=== PATIENT | male | born 1990 | race Caucasian/White ===

== ENCOUNTER 2017-08-04 10:52 | Emergency (ER) | payer BC ==
--- NOTE | 2017-08-04 11:34 | ER Document Report ---
ED Medical Screen (RME) - General Chief Complaint: Head Injury Stated Complaint: HEADACHE, SPEECH PROBLEMS, BLURRED VISION Time Seen by Provider: 08/04/17 11:27 Notes: Patient fell and hit his head on Friday on a 4 x 4 fence post. There is no loss of consciousness. 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 Mom states that patient now is having trouble finding words and is confused. Patient states that he has had some headaches and feels dizzy. They both state the symptoms of been progressing since Friday. TRAVEL OUTSIDE OF THE [place] IN LAST 30 DAYS: No - Related Data Allergies/Adverse Reactions: cefixime [From Suprax] Allergy (Verified 08/04/17 11:03) sumatriptan [From Imitrex] Adverse Reaction (Verified 08/04/17 11:03) sumatriptan succinate [From Imitrex] Adverse Reaction (Verified 08/04/17 11:03) Past Medical History Renal/ Medical History: Denies: Hx Peritoneal Dialysis Past Surgical History: Reports: Hx Tonsillectomy - adnoids - Immunizations Hx Diphtheria, Pertussis, Tetanus Vaccination: No Physical Exam - Vital signs Vitals: Temp Pulse Resp BP Pulse Ox 98.0 F 55 L 16 138/86 H 100 08/04/17 11:04 08/04/17 11:04 08/04/17 11:04 08/04/17 11:04 08/04/17 11:04 Course - Vital Signs Vital signs: Temp Pulse Resp BP Pulse Ox 98.0 F 55 L 16 138/86 H 100 08/04/17 11:04 08/04/17 11:04 08/04/17 11:04 08/04/17 11:04 08/04/17 11:04
--- NOTE | 2017-08-04 12:19 | RADIOLOGY REPORT (SQ) ---
EXAM DESCRIPTION: CT HEAD WITHOUT COMPLETED DATE/TIME: 08/04/2017 12:06 pm REASON FOR STUDY: trauma/gardner/confusion COMPARISON: None. TECHNIQUE: Axial images acquired through the brain without intravenous contrast. Images reviewed wi th bone, brain and subdural windows. Images stored on PACS. All CT scanners at this facility use dose modulation, iterative reconstruction, and/or weight based d osing when appropriate to reduce radiation dose to as low as reasonably achievable (ALARA). [facility]: Dose Right [facility]: CareDose [facility]: Dose Right [facility]: Teradose 4D [facility]: [employer] RADIATION DOSE: Up-to-date CT equipment and radiation dose reduction techniques were employed. CTDIv ol: 64.6 mGy. DLP: 1163 mGy-cm. mGy. LIMITATIONS: None. FINDINGS: VENTRICLES: Normal size and contour. CEREBRUM: No masses. No hemorrhage. No midline shift. No evidence for acute infarction. Normal gra y/white matter differentiation. No areas of low density in the white matter. CEREBELLUM: No masses. No hemorrhage. No alteration of density. No evidence for acute infarction. EXTRAAXIAL SPACES: No fluid collections. No masses. ORBITS AND GLOBE: No intra- or extraconal masses. Normal contour of globe without masses. CALVARIUM: No fracture. PARANASAL SINUSES: No fluid or mucosal thickening. SOFT TISSUES: No mass or hematoma. OTHER: No other significant finding. IMPRESSION: NORMAL BRAIN CT WITHOUT CONTRAST. EVIDENCE OF ACUTE STROKE: NO. COMMENT: Quality ID # [id number]: Final reports with documentation of one or more dose reduction techniques (e.g., Automated exposure control, adjustment of the mA and/or kV according to patient size, use of iterative reconstruction technique) TECHNICAL DOCUMENTATION: JOB ID: [id number] [employer]- All Rights Reserved
--- NOTE | 2017-08-04 13:49 | ER Document Report ---
ED Head/Face/Scalp Injury - General Chief Complaint: Head Injury Stated Complaint: HEADACHE, SPEECH PROBLEMS, BLURRED VISION Time Seen by Provider: 08/04/17 11:27 Mode of Arrival: Ambulatory Information source: Patient Notes: 27 yo male hit back of head on fence post when falling backwards out of chair, night. Friday slight headache.. Symptoms of concussion friday, included lost where he was in the grocery sotre, vertigo while watching TV or blurring words when reads, increased slurring speech. Headache pain is 5/5 frontal headache. 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 Concussion in past 2014, sx lasted 2 months. TRAVEL OUTSIDE OF THE [place] IN LAST 30 DAYS: No - Related Data Allergies/Adverse Reactions: cefixime [From Suprax] Allergy (Verified 08/04/17 12:23) sumatriptan [From Imitrex] Adverse Reaction (Verified 08/04/17 12:23) sumatriptan succinate [From Imitrex] Adverse Reaction (Verified 08/04/17 12:23) Past Medical History - General Information source: Patient, Parent - mom - Social History Smoking Status: Never Smoker Frequency of alcohol use: None Drug Abuse: None Family History: Reviewed & Not Pertinent Patient has suicidal ideation: No Patient has homicidal ideation: No Renal/ Medical History: Denies: Hx Peritoneal Dialysis Past Surgical History: Reports: Hx Tonsillectomy - adnoids - Immunizations Hx Diphtheria, Pertussis, Tetanus Vaccination: No Review of Systems - Review of Systems Constitutional: No symptoms reported EENT: No symptoms reported Cardiovascular: No symptoms reported Respiratory: No symptoms reported Gastrointestinal: No symptoms reported Genitourinary: No symptoms reported Male Genitourinary: No symptoms reported Musculoskeletal: No symptoms reported Skin: No symptoms reported Hematologic/Lymphatic: No symptoms reported Neurological/Psychological: See HPI, Confusion Physical Exam - Vital signs Vitals: Temp Pulse Resp BP Pulse Ox 98.0 F 55 L 16 138/86 H 100 08/04/17 11:04 08/04/17 11:04 08/04/17 11:04 08/04/17 11:04 08/04/17 11:04 Interpretation: Normal - General General appearance: Appears well, Alert - HEENT Head: Normocephalic, Atraumatic Eyes: Normal Pupils: PERRL - Respiratory Respiratory status: No respiratory distress Chest status: Nontender Breath sounds: Normal Chest palpation: Normal - Cardiovascular Rhythm: Regular Heart sounds: Normal auscultation Murmur: No - Abdominal Inspection: Normal Distension: No distension Bowel sounds: Normal Tenderness: Nontender Organomegaly: No organomegaly - Back Back: Normal, Nontender - Extremities General upper extremity: Normal inspection, Nontender, Normal color, Normal ROM , Normal temperature General lower extremity: Normal inspection, Nontender, Normal color, Normal ROM , Normal temperature, Normal weight bearing. No: Jamie's sign - Neurological Neuro grossly intact: Yes Cognition: Normal Orientation: AAOx4 [place] Coma Scale Eye Opening: Spontaneous [place] Coma Scale Verbal: Oriented [place] Coma Scale Motor: Obeys Commands [place] Coma Scale Total: 15 Speech: Normal Motor strength normal: LUE, RUE, LLE, RLE Sensory: Normal - Psychological Associated symptoms: Normal affect, Normal mood - Skin Skin Temperature: Warm Skin Moisture: Dry Skin Color: Normal Course - Re-evaluation Re-evalutation: 08/04/17 14:[address] negative, headache 0/5. Ready to go home with mom. 08/05/17 21:10 - Vital Signs Vital signs: Temp Pulse Resp BP Pulse Ox 97.6 F 54 L 15 122/84 100 08/04/17 14:04 08/04/17 14:04 08/04/17 14:04 08/04/17 14:04 08/04/17 14:04 Discharge - Discharge Clinical Impression: Post concussion syndrome Headache Qualifiers: Headache type: unspecified Headache chronicity pattern: acute headache Intractability: not intractable Qualified Code(s): R51 - Headache Condition: Good Disposition: HOME, SELF-CARE Instructions: Concussion ([facility]), Headache ([facility]), Neurologist, Post-Concussion Syndrome ([facility]) Additional Instructions: to er if worse rest see dr. torres on friday as planned. see neurologist for headache follow up Forms: Parent Work Note, Return to Work Referrals: NAA CASSIDY MD [ACTIVE STAFF] - Follow up as needed JOHN TORRES MD [Primary Care Provider] - 08/11/17
[2017-08-04] MEDS ORDERED: KETOROLAC TROMETHAMINE INJ/PF 30 MG/1 ML SDV IV ONE (13:51)
[2017-08-04] MEDS ORDERED: DIPHENHYDRAMINE HCL 50 MG/ML VIAL IV ONE (13:51)
[2017-08-04] MEDS ORDERED: PROCHLORPERAZINE EDISYLATE INJ 10 MG/2 ML VIAL IV ONE (13:51)
[2017-08-04 14:25] VITALS: BP 122/84
== END 2017-08-04 14:51 | disposition home or self-care (01) ==
LOC: ER 10:52
DX: F07.81 Postconcussional syndrome (principal); G44.309 Post-traumatic headache, unspecified, not intractable; H53.8 Other visual disturbances; Z88.3 Allergy status to other anti-infective agents
CPT/HCPCS: 99284; 96374; 96375; 70450; J1200; J1885; J0780

== ENCOUNTER 2018-07-27 14:54 | Emergency (ER) | payer BC ==
--- NOTE | 2018-07-27 15:17 | ER Document Report ---
ED Medical Screen (RME) - General Chief Complaint: Head Injury Stated Complaint: HEAD INJURY Time Seen by Provider: 07/27/18 15:10 Mode of Arrival: Ambulatory Information source: Patient, Parent Notes: 28-year-old male presents emergency department with complaints of headache, slurred speech, difficulty concentrating. Patient states that he hit his head on a loft ceiling yesterday. No LOC. Began feeling nauseated afterwards. Denies vomiting. 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 I have greeted and performed a rapid initial assessment of this patient. A comprehensive ED assessment and evaluation of the patient, analysis of test results and completion of the medical decision making process will be conducted by additional ED providers. PHYSICAL EXAMINATION: GENERAL: Well-appearing, well-nourished and in no acute distress. HEAD: Atraumatic, normocephalic. EYES: Pupils equal round extraocular movements intact, conjunctiva are normal. ENT: Nares patent NECK: Normal range of motion LUNGS: No respiratory distress Musculoskeletal: Normal range of motion NEUROLOGICAL: Normal speech, normal gait. PSYCH: Normal mood, normal affect. SKIN: Warm, Dry, normal turgor, no rashes or lesions noted. TRAVEL OUTSIDE OF THE [place] IN LAST 30 DAYS: No - Related Data Allergies/Adverse Reactions: cefixime [From Suprax] Allergy (Verified 07/27/18 14:55) sumatriptan [From Imitrex] Adverse Reaction (Verified 07/27/18 14:55) sumatriptan succinate [From Imitrex] Adverse Reaction (Verified 07/27/18 14:55) Past Medical History - Social History Frequency of alcohol use: Rare Drug Abuse: None Renal/ Medical History: Denies: Hx Peritoneal Dialysis Past Surgical History: Reports: Hx Tonsillectomy - adnoids - Immunizations Hx Diphtheria, Pertussis, Tetanus Vaccination: No History of Influenza Vaccine for 06/2017 - 11/2017 Season: Unknown Physical Exam - Vital signs Vitals: Temp Pulse Resp BP Pulse Ox 97.9 F 65 15 118/70 100 07/27/18 14:59 07/27/18 14:59 07/27/18 14:59 07/27/18 14:59 07/27/18 14:59 Course - Vital Signs Vital signs: Temp Pulse Resp BP Pulse Ox 97.9 F 65 15 118/70 100 07/27/18 14:59 07/27/18 14:59 07/27/18 14:59 07/27/18 14:59 07/27/18 14:59 Doctor's Discharge - Discharge Referrals: JOHN TORRES MD [Primary Care Provider] - Follow up as needed
--- NOTE | 2018-07-27 15:56 | RADIOLOGY REPORT (SQ) ---
EXAM DESCRIPTION: CT HEAD WITHOUT COMPLETED DATE/TIME: 07/27/2018 3:42 pm REASON FOR STUDY: trauma, slurred speech, memory loss COMPARISON: 08/04/2017 TECHNIQUE: Axial images acquired through the brain without intravenous contrast. Images reviewed wi th bone, brain and subdural windows. Additional sagittal and coronal reconstructions were generated. Images stored on PACS. All CT scanners at this facility use dose modulation, iterative reconstruction, and/or weight based d osing when appropriate to reduce radiation dose to as low as reasonably achievable (ALARA). [facility]: Dose Right [facility]: CareDose [facility]: Dose Right [facility]: Teradose 4D [facility]: [employer] RADIATION DOSE: CT Rad equipment meets quality standard of care and radiation dose reduction techniq ues were employed. CTDIvol: 53.2 mGy. DLP: 1097 mGy-cm. mGy. LIMITATIONS: None. FINDINGS: VENTRICLES: Normal size and contour. CEREBRUM: No masses. No hemorrhage. No midline shift. No evidence for acute infarction. Normal gra y/white matter differentiation. No areas of low density in the white matter. CEREBELLUM: No masses. No hemorrhage. No alteration of density. No evidence for acute infarction. EXTRAAXIAL SPACES: No fluid collections. No masses. ORBITS AND GLOBE: No intra- or extraconal masses. Normal contour of globe without masses. CALVARIUM: No fracture. PARANASAL SINUSES: No fluid or mucosal thickening. SOFT TISSUES: No mass or hematoma. OTHER: No other significant finding. IMPRESSION: NORMAL BRAIN CT WITHOUT CONTRAST. EVIDENCE OF ACUTE STROKE: NO. COMMENT: Quality ID # [id number]: Final reports with documentation of one or more dose reduction techniques (e.g., Automated exposure control, adjustment of the mA and/or kV according to patient size, use of iterative reconstruction technique) TECHNICAL DOCUMENTATION: JOB ID: [id number] [employer]- All Rights Reserved Reading location - IP/workstation name: [email or web address]
[2018-07-27] MEDS ORDERED: ONDANSETRON 4 MG TAB.RAPDIS PO ONE (17:18)
[2018-07-27] MEDS ORDERED: PROCHLORPERAZINE MALEATE 5 MG TABLET PO ONE (17:18)
--- NOTE | 2018-07-27 18:59 | ER Document Report ---
ED General - General Chief Complaint: Head Injury Stated Complaint: HEAD INJURY Time Seen by Provider: 07/27/18 15:10 Mode of Arrival: Ambulatory TRAVEL OUTSIDE OF THE [place] IN LAST 30 DAYS: No - HPI Patient complains to provider of: Head injury nausea vomiting feeling unwell Notes: Patient coming in today for the above-stated symptoms. Patient was seen by her triage provider notes provided below 28-year-old male presents emergency department with complaints of headache, slurred speech, difficulty concentrating. Patient states that he hit his head on a loft ceiling yesterday. No LOC. Began feeling nauseated afterwards. Denies vomiting. 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 Patient does agree with the above statements. Patient states while at work anytime he tried to exert himself his symptoms will actually worsen. Patient denies any fever chills diarrhea. Patient otherwise resting comfortably upon my evaluation lying in the right lateral recumbent position and easily awoken. - Related Data Allergies/Adverse Reactions: cefixime [From Suprax] Allergy (Verified 07/27/18 14:55) sumatriptan [From Imitrex] Adverse Reaction (Verified 07/27/18 14:55) sumatriptan succinate [From Imitrex] Adverse Reaction (Verified 07/27/18 14:55) Past Medical History - General Information source: Patient, Parent - Social History Smoking Status: Never Smoker Frequency of alcohol use: Rare Drug Abuse: None Family History: Reviewed & Not Pertinent Patient has suicidal ideation: No Patient has homicidal ideation: No Renal/ Medical History: Denies: Hx Peritoneal Dialysis Past Surgical History: Reports: Hx Tonsillectomy - adnoids - Immunizations Hx Diphtheria, Pertussis, Tetanus Vaccination: No Review of Systems - Review of Systems Constitutional: Other - Feeling unwell EENT: No symptoms reported Cardiovascular: No symptoms reported Respiratory: No symptoms reported Gastrointestinal: Nausea Genitourinary: No symptoms reported Male Genitourinary: No symptoms reported Musculoskeletal: No symptoms reported Skin: No symptoms reported Hematologic/Lymphatic: No symptoms reported Neurological/Psychological: No symptoms reported -: Yes All other systems reviewed and negative Physical Exam - Vital signs Vitals: Temp Pulse Resp BP Pulse Ox 97.9 F 65 15 118/70 100 07/27/18 14:59 07/27/18 14:59 11/05/18 14:59 07/27/18 14:59 07/27/18 14:59 Interpretation: Normal - General General appearance: Appears well, Alert - HEENT Head: Normocephalic, Atraumatic Eyes: Normal Cornea: Normal Extraocular movements intact: Yes Eyelashes: Normal Pupils: PERRL Ears: Normal External canal: Cerumen impaction - Bilateral Tympanic membrane: Normal Sinus: Normal Nasal: Normal Mouth/Lips: Normal Mucous membranes: Dry Pharynx: Normal Neck: Normal - Respiratory Respiratory status: No respiratory distress Chest status: Nontender Breath sounds: Normal Chest palpation: Normal - Cardiovascular Rhythm: Regular Heart sounds: Normal auscultation Murmur: No - Abdominal Inspection: Normal Distension: No distension Bowel sounds: Normal Tenderness: Nontender Organomegaly: No organomegaly - Back Back: Normal, Nontender - Extremities General upper extremity: Normal inspection, Nontender, Normal color, Normal ROM , Normal temperature General lower extremity: Normal inspection, Nontender, Normal color, Normal ROM , Normal temperature, Normal weight bearing. No: Jamie's sign - Neurological Neuro grossly intact: Yes Cognition: Normal Orientation: AAOx4 [place] Coma Scale Eye Opening: Spontaneous [place] Coma Scale Verbal: Oriented [place] Coma Scale Motor: Obeys Commands [place] Coma Scale Total: 15 Speech: Normal Motor strength normal: LUE, RUE, LLE, RLE Sensory: Normal - Psychological Associated symptoms: Normal affect, Normal mood - Skin Skin Temperature: Warm Skin Moisture: Dry Skin Color: Normal Course - Re-evaluation Re-evalutation: 07/28/18 00:19 Examination shows bilateral cerumen impaction along with dry mucous membranes although orthostatics are otherwise negative. Patient was given Compazine Zofrbobo reevaluate states improvement of his symptoms recommend the patient instill Debrox in his ears for possible wax removal and follow-up PCP possible need for referral to ENT. Mother states history of cerumen impactions in past complications with the ear with similar symptoms of today presenting with ear complications. Otherwise patient was encouraged to drink plenty of fluids. CT of the head is negative patient discharged home - Vital Signs Vital signs: Temp Pulse Resp BP Pulse Ox 98.5 F 74 18 115/74 98 07/27/18 19:32 07/27/18 19:32 07/27/18 19:32 07/27/18 19:32 07/27/18 19:32 Discharge - Discharge Clinical Impression: Nausea Head injury Qualifiers: Encounter type: initial encounter Qualified Code(s): S09.90XA - Unspecified injury of head, initial encounter Cerumen impaction Qualifiers: Laterality: bilateral Qualified Code(s): H61.23 - Impacted cerumen, bilateral Disposition: HOME, SELF-CARE Instructions: Cerumen Impaction ([facility]), Head Injury Precautions ([facility]), Nausea or Vomiting, Nonspecific ([facility]) Additional Instructions: Follow-up with your primary care physician. Please use the Debrox drops as prescribed. Will recommend follow-up with your primary care physician. His head CT today does not show any signs of significant pathology. He may use the Zofran Compazine for dizziness and headaches. He may also use it for nausea. Please take Tylenol Motrin for pain. Prescriptions: Ibuprofen [Motrin 600 mg Tablet] 600 mg PO Q8HP PRN #21 tablet PRN Reason: Carbamide Peroxide [Debrox] 5 drop OT BID 4 Days #1 bottle Ondansetron HCl [Zofran 4 mg Tablet] 1 - 2 tab PO Q6 #30 tablet Prochlorperazine Maleate [Compazine] 5 mg PO Q6 #30 tablet Referrals: JOHN TORRSE MD [Primary Care Provider] - Follow up in 1 week
[2018-07-27 19:33] VITALS: BP 115/74
== END 2018-07-27 19:32 | disposition home or self-care (01) ==
LOC: ER 14:54
DX: S09.90XA Unspecified injury of head, initial encounter (principal); H61.23 Impacted cerumen, bilateral; R11.2 Nausea with vomiting, unspecified; R51 Headache; R47.81 Slurred speech; R11.0 Nausea; X58.XXXA Exposure to other specified factors, initial encounter
CPT/HCPCS: 99284; 82962; 70450; S0119; S0183

== ENCOUNTER 2019-03-19 09:56 | Emergency (ER) | payer BC ==
[2019-03-19] MEDS ORDERED: ACETAMINOPHEN 325 MG TABLET PO ONE (10:49)
--- NOTE | 2019-03-19 11:13 | RADIOLOGY REPORT (SQ) ---
EXAM DESCRIPTION: CT HEAD WITHOUT COMPLETED DATE/TIME: 03/19/2019 11:02 am REASON FOR STUDY: head injury with amnesia COMPARISON: 07/27/2018. TECHNIQUE: Axial images acquired through the brain without intravenous contrast. Images reviewed wi th bone, brain and subdural windows. Additional sagittal and coronal reconstructions were generated. Images stored on PACS. All CT scanners at this facility use dose modulation, iterative reconstruction, and/or weight based d osing when appropriate to reduce radiation dose to as low as reasonably achievable (ALARA). [facility]: Dose Right [facility]: CareDose [facility]: Dose Right [facility]: Teradose 4D [facility]: [employer] RADIATION DOSE: CT Rad equipment meets quality standard of care and radiation dose reduction techniq ues were employed. CTDIvol: 53.2 mGy. DLP: 1044 mGy-cm. mGy. LIMITATIONS: None. FINDINGS: VENTRICLES: Normal size and contour. CEREBRUM: No masses. No hemorrhage. No midline shift. No evidence for acute infarction. Normal gra y/white matter differentiation. No areas of low density in the white matter. CEREBELLUM: No masses. No hemorrhage. No alteration of density. No evidence for acute infarction. EXTRAAXIAL SPACES: No fluid collections. No masses. ORBITS AND GLOBE: No intra- or extraconal masses. Normal contour of globe without masses. CALVARIUM: No fracture. PARANASAL SINUSES: No fluid or mucosal thickening. SOFT TISSUES: No mass or hematoma. OTHER: No other significant finding. IMPRESSION: NORMAL BRAIN CT WITHOUT CONTRAST. EVIDENCE OF ACUTE STROKE: NO. COMMENT: Quality ID # [id number]: Final reports with documentation of one or more dose reduction techniques (e.g., Automated exposure control, adjustment of the mA and/or kV according to patient size, use of iterative reconstruction technique) TECHNICAL DOCUMENTATION: JOB ID: [id number] [email or web address]- All Rights Reserved Reading location - IP/workstation name: [email or web address]
--- NOTE | 2019-03-19 11:28 | ER Document Report ---
HPI - HPI Time Seen by Provider: 03/19/19 10:37 Pain Level: 2 Notes: Patient is a 28-year-old male presenting to the emergency department with complaints of head injury and possible concussion. Patient does have developmental delays and his mother is at the bedside. Mother reports recurrent concussions in the past. She reports he fell a few days ago, did not lose consciousness and has not vomited but has had persistent headache and concern for concussion due to patient's short-term memory loss. Patient is seen by a neurologist and last saw them a few months ago. - CONSTITUTIONAL Constitutional: DENIES: Fever, Chills - NEURO Neurology: REPORTS: Headache - frontal area, Weakness - upper and lower extrem., Vision blurred - on and off since hit head, Dizzinesss / Vertigo Past Medical History - General Information source: Patient - Social History Smoking Status: Never Smoker Frequency of alcohol use: None Drug Abuse: None Family History: Reviewed & Not Pertinent Patient has suicidal ideation: No Patient has homicidal ideation: No - Medical History Medical History: Negative Renal/ Medical History: Denies: Hx Peritoneal Dialysis Past Surgical History: Reports: Hx Tonsillectomy - adnoids - Immunizations Hx Diphtheria, Pertussis, Tetanus Vaccination: No Vertical Provider Document - CONSTITUTIONAL Notes: PHYSICAL EXAMINATION: GENERAL: Well-appearing, well-nourished and in no acute distress. HEAD: Atraumatic, normocephalic. EYES: Pupils equal round extraocular movements intact, conjunctiva are normal. ENT: Nares patent NECK: Normal range of motion LUNGS: No respiratory distress Musculoskeletal: Normal range of motion NEUROLOGICAL: Normal speech, normal gait, no focal neurological deficits. PSYCH: Normal mood, normal affect. SKIN: Warm, Dry, normal turgor, no rashes or lesions noted. - INFECTION CONTROL TRAVEL OUTSIDE OF THE [place] IN LAST 30 DAYS: No Course - Re-evaluation Re-evalutation: Patient appears well, nontoxic has had no vomiting or loss of consciousness. Head CT is unremarkable. Patient will be discharged home with plans to follow- up with his neurologist. Family member at bedside is in agreements with this plan. - Vital Signs Vital signs: Temp Pulse Resp BP Pulse Ox 74 16 125/78 95 03/19/19 10:05 03/19/19 10:05 03/19/19 10:05 03/19/19 10:05 Discharge - Discharge Clinical Impression: Head injury Qualifiers: Encounter type: initial encounter Qualified Code(s): S09.90XA - Unspecified injury of head, initial encounter Condition: Stable Disposition: HOME, SELF-CARE Additional Instructions: You have likely sustained a contusion (bruise) to your head. If you had a CT scan done, it did not show any evidence of serious injury or bleeding. Symptoms to expect from a concussion include nausea, mild to moderate headache, difficulty concentrating or sleeping, and mild lightheadedness. These symptoms should improve over the next few days to weeks. Return to the emergency department or follow-up with your primary care doctor if your symptoms are not improving over this time. Signs of a more serious head injury include vomiting, severe headache, excessive sleepiness or confusion, and weakness or numbness in your face, arms or legs. Return immediately to the Emergency Department if you experience any of these more concerning symptoms. Rest, avoid strenuous physical or mental activity, and avoid activities that could potentially result in another head injury until all your symptoms from this head injury are completely resolved for at least 2-3 weeks. If you participate in sports, get cleared by your doctor or staff trainer before returning to play. You may take ibuprofen or acetaminophen over the counter according to label instructions for mild headache or scalp soreness. Forms: Return to Work Referrals: JOHN TORRES MD [Primary Care Provider] - Follow up as needed
[2019-03-19 11:31] VITALS: BP 114/73
== END 2019-03-19 11:35 | disposition home or self-care (01) ==
LOC: ER 09:56
DX: S09.90XA Unspecified injury of head, initial encounter (principal); W19.XXXA Unspecified fall, initial encounter; R62.50 Unspecified lack of expected normal physiological development in childhood; R53.1 Weakness
CPT/HCPCS: 70450; 99283